=== PATIENT | male | born 1955 | race American Indian/Alaskan Native ===

== ENCOUNTER 2021-08-18 13:31 | Emergency (ER) | payer MEDICARE ==
--- NOTE | 2021-08-18 14:57 | Emergency Department Report ---
ED Extremity Problem HPI - General Chief complaint: Extremity Problem,Nontraumatic Stated complaint: PAIN IN LEG, DARK COLORATION Time Seen by Provider: 08/18/21 14:12 Source: patient Mode of arrival: Ambulatory Limitations: No Limitations - History of Present Illness Initial comments: Patient is a 65-year-old male presents emergency room complaints of right leg pain that began a couple months ago. He denies any fall or injury. He states that the pain shoots from his hip all the way to his foot. He states he has had right leg swelling and discoloration of his right leg. He denies any numbness or weakness. He is ambulatory. He denies ever having this in the past. No allergies to medications. - Related Data Previous Rx's Medication Instructions Recorded Last Taken Type Acetaminophen [Tylenol] 650 mg PO Q8HR PRN #30 capsule 08/18/21 Unknown Rx traMADoL [Ultram 50 MG tab] 50 mg PO Q6HR PRN #12 tablet 08/18/21 Unknown Rx ED Review of Systems ROS: Stated complaint: PAIN IN LEG, DARK COLORATION Other details as noted in HPI Comment: All other systems reviewed and negative ED Past Medical Hx - Medications Home Medications: Home Medications Medication Instructions Recorded Confirmed Last Taken Type Acetaminophen [Tylenol] 650 mg PO Q8HR PRN #30 capsule 08/18/21 Unknown Rx traMADoL [Ultram 50 MG tab] 50 mg PO Q6HR PRN #12 tablet 08/18/21 Unknown Rx ED Physical Exam - General Limitations: No Limitations General appearance: alert, in no apparent distress - Head Head exam: Present: atraumatic, normocephalic - Eye Eye exam: Present: normal appearance - ENT ENT exam: Present: mucous membranes moist - Extremities Exam Extremities exam: Present: other (mild non pitting edema present to the RLE, hyperpigmentation to the right lower leg, FROM, no deformity, no erythema, no induration, no increased warmth, 2+ dorsalis pedis pulse, sensation is intact) - Neurological Exam Neurological exam: Present: alert, oriented X3 - Psychiatric Psychiatric exam: Present: normal affect, normal mood - Skin Skin exam: Present: warm, dry, intact ED Course Vital Signs 08/18/21 08/18/21 13:36 17:39 Temperature 98.3 F Pulse Rate 87 87 Respiratory 18 18 Rate Blood Pressure 146/93 Blood Pressure 176/95 [Left] O2 Sat by Pulse 100 97 Oximetry ED Medical Decision Making - Lab Data Result diagrams: 08/18/21 15:15 08/18/21 15:15 Lab Results 08/18/21 08/18/21 08/18/21 Range/Units 15:15 15:15 15:15 WBC 4.1 L (4.5-11.0) K/mm3 RBC 5.71 H (3.65-5.03) M/mm3 Hgb 15.6 H (11.8-15.2) gm/dl Hct 48.5 H (35.5-45.6) % MCV 85 (84-94) fl MCH 27 L (28-32) pg MCHC 32 (32-34) % RDW 15.7 H (13.2-15.2) % Plt Count 154 (140-440) K/mm3 Lymph % (Auto) 26.0 (13.4-35.0) % Cedar % (Auto) 14.7 H (0.0-7.3) % Eos % (Auto) 0.2 (0.0-4.3) % Baso % (Auto) 0.6 (0.0-1.8) % Lymph # (Auto) 1.1 L (1.2-5.4) K/mm3 Cedar # (Auto) 0.6 (0.0-0.8) K/mm3 Eos # (Auto) 0.0 (0.0-0.4) K/mm3 Baso # (Auto) 0.0 (0.0-0.1) K/mm3 Seg Neutrophils % 58.5 (40.0-70.0) % Seg Neutrophils # 2.4 (1.8-7.7) K/mm3 PT 13.5 (12.2-14.9) Sec. INR 0.93 (0.87-1.13) APTT 32.0 (24.2-36.6) Sec. Sodium 141 (137-145) mmol/L Potassium 3.2 L (3.6-5.0) mmol/L Chloride 103.0 (98-107) mmol/L Carbon Dioxide 23 (22-30) mmol/L Anion Gap 18 mmol/L BUN 19 (9-20) mg/dL Creatinine 1.4 H (0.8-1.3) mg/dL Estimated GFR > 60 ml/min BUN/Creatinine Ratio 14 % Glucose 103 H (75-100) mg/dL Calcium 9.4 (8.4-10.2) mg/dL Total Bilirubin 1.00 (0.1-1.2) mg/dL AST 38 (5-40) units/L ALT 43 (7-56) units/L Alkaline Phosphatase 52 (35-129) units/L NT-Pro-B Natriuret Pep 192.0 (0-900) pg/mL Total Protein 7.5 (6.3-8.2) g/dL Albumin 3.9 (3.9-5) g/dL Albumin/Globulin Ratio 1.1 % - Radiology Data Radiology results: report reviewed Ordering Physician: BIANCA SARGENT Date of Service: 08/18/21 Procedure(s): VL venous duplex LE RT Accession Number(s): [id number] cc: BIANCA SARGENT DUPLEX DOPPLER LOWER EXTREMITY VEINS, RIGHT INDICATION / CLINICAL INFORMATION: right leg swelling, pain, discoloration. TECHNIQUE: Duplex doppler imaging was performed through the veins of the right lower extremity using venous compression and other maneuvers. COMPARISON: None available. FINDINGS: RIGHT COMMON FEMORAL VEIN: Negative. RIGHT FEMORAL VEIN: Negative. RIGHT POPLITEAL VEIN: Negative. RIGHT CALF VEINS: Negative. ADDITIONAL FINDINGS: None. IMPRESSION: 1. No sonographic evidence for DVT in the right lower extremity. Signer Name: Keith Weaver MD Signed: 08/18/2021 3:11 PM Workstation Name: [id number] Transcribed By: Dictated By: Keith Weaver MD Electronically Authenticated By: Keith Weaver MD Signed Date/Time: 08/18/211510 DD/ 10 TD/TT: - Medical Decision Making Patient is a 65-year-old male presents emergency room complaints of right leg pain that began a couple months ago. He denies any fall or injury. He states that the pain shoots from his hip all the way to his foot. He states he has had right leg swelling and discoloration of his right leg. He denies any numbness or weakness. He is ambulatory. He denies ever having this in the past. No allergies to medications. vss. on exam: mild non pitting edema present to the RLE, hyperpigmentation to the right lower leg, FROM, no deformity, no erythema, no induration, no increased warmth, 2+ dorsalis pedis pulse, sensation is intact. doppler RLE: 1. No sonographic evidence for DVT in the right lower extremity. no clinical signs of acute arterial occlusion, no signs of cellulitis or infection. labs with hypokalemia, repleted with oral potassium otherwise stable. discussed all findings with pt. advised pt please take medication as prescribed. follow up with a vascular surgeon. follow up with your primary care doctor. return to the emergency room for any new or worsening symptoms. Critical care attestation.: If time is entered above; I have spent that time in minutes in the direct care of this critically ill patient, excluding procedure time. ED Disposition Clinical Impression: Leg swelling, Hyperpigmentation, Hypokalemia Leg pain Qualifiers: Laterality: right Qualified Code(s): M79.604 - Pain in right leg Disposition: 01 HOME / SELF CARE / HOMELESS Is pt being admited?: No Does the pt Need Aspirin: No Condition: Stable Additional Instructions: please take medication as prescribed. follow up with a vascular surgeon. follow up with your primary care doctor. return to the emergency room for any new or worsening symptoms. Prescriptions: Acetaminophen [Tylenol] 650 mg PO Q8HR PRN #30 capsule PRN Reason: moderate pain traMADoL [Ultram 50 MG tab] 50 mg PO Q6HR PRN #12 tablet PRN Reason: Pain , Severe (7-10) Referrals: SLOANE MARQUEZ NP-C [Primary Care Provider] - 3-5 Days [facility] [Provider Group] - 3-5 Days Time of Disposition: 16:05 Print Language: GREENLANDIC
--- NOTE | 2021-08-18 15:15 | Vascular Lab Report ---
DUPLEX DOPPLER LOWER EXTREMITY VEINS, RIGHT INDICATION / CLINICAL INFORMATION: right leg swelling, pain, discoloration. TECHNIQUE: Duplex doppler imaging was performed through the veins of the right lower extremity using venous comp ression and other maneuvers. COMPARISON: None available. FINDINGS: RIGHT COMMON FEMORAL VEIN: Negative. RIGHT FEMORAL VEIN: Negative. RIGHT POPLITEAL VEIN: Negative. RIGHT CALF VEINS: Negative. ADDITIONAL FINDINGS: None. IMPRESSION: 1. No sonographic evidence for DVT in the right lower extremity. Signer Name: Keith Weaver MD Signed: 08/18/2021 3:11 PM Workstation Name: [id number]
[2021-08-18 15:41] LABS: Basophils % (Auto) 0.6 % (0.0-1.8); Eosinophils % (Auto) 0.2 % (0.0-4.3); Hematocrit 48.5 % (35.5-45.6); Hemoglobin 15.6 gm/dl (11.8-15.2); Lymphocytes # (Auto) 1.1 K/mm3 (1.2-5.4); Mean Corpuscular HGB Conc 32 % (32-34); Mean Corpuscular Volume 85 fl (84-94); Monocytes # (Auto) 0.6 K/mm3 (0.0-0.8); Monocytes % (Auto) 14.7 % (0.0-7.3); Platelet Count 154 K/mm3 (140-440); Red Blood Count 5.71 M/mm3 (3.65-5.03); Red Cell Distribution Width 15.7 % (13.2-15.2)
[2021-08-18 15:50] LABS: Alanine Aminotransferase 43 units/L (7-56); Albumin 3.9 g/dL (3.9-5); BUN/Creatinine Ratio 14; Blood Urea Nitrogen 19 mg/dL (9-20); Calcium 9.4 mg/dL (8.4-10.2); Hemolysis Index 4
[2021-08-18 15:51] LABS: INR 0.93 (0.87-1.13)
[2021-08-18] MEDS ORDERED: POTASSIUM CHLORIDE ER 20 MEQ TAB PO ONE ×2 (15:51→17:34)
[2021-08-18 17:40] VITALS: BP 176/95
== END 2021-08-18 17:40 | disposition home or self-care (01) ==
LOC: ED 13:31
DX: L81.9 Disorder of pigmentation, unspecified (principal); E87.6 Hypokalemia; Z79.899 Other long term (current) drug therapy
CPT/HCPCS: 36415; 80053; 83880; 85025; 85610; 85730; 99284